=== PATIENT | male | born 2000 | race Caucasian/White ===

== ENCOUNTER 2020-01-03 09:21 | Emergency (ER) | payer MEDICAID ==
--- NOTE | 2020-01-03 15:03 | ED Physician Documentation ---
PD HPI ABD PAIN - Stated complaint Stated Complaint: CONSTIPATED - Chief complaint Chief Complaint: General - History obtained from History obtained from: Patient - History of Present Illness Timing - onset: Yesterday Timing - duration: Hours Timing - details: Gradual onset, Still present Quality: Sharp, Pain Location: Other (rectum) Radiation: Lower back Improved by: Laying still Worsened by: Moving, Breathing, Position, Palpation Associated symptoms: Constipation. No: Fever, Nausea, Vomiting Similar symptoms before: Has not had sx before Recently seen: Not recently seen - Additional information Additional information: 19-year-old male is acutely constipated. He states that he ate tuna some lin and he believes he has an impaction. He is not able to get stool to come out and and is he is in a lot of pain. He has not had this happen previously. Review of Systems Constitutional: denies: Fever, Chills Ears: denies: Ear pain Nose: denies: Congestion Throat: denies: Sore throat Respiratory: denies: Cough GI: reports: Abdominal Pain, Constipation. denies: Vomiting : denies: Dysuria, Frequency PD PAST MEDICAL HISTORY - Present Medications Home Medications: Ambulatory Orders Medication Instructions Recorded Confirmed No Known Home Medications 01/03/20 01/03/20 - Allergies Allergies/Adverse Reactions: Allergies Allergy/AdvReac Type Severity Reaction Status Date / Time No Known Drug Allergies Allergy Verified 01/03/20 09:30 PD ED PE NORMAL - Vitals Vital signs reviewed: Yes - General General: Alert and oriented X 3, Well developed/nourished, Other (Patient is moaning in pain standing in the room and moves very slowly.) - HEENT HEENT: Atraumatic, PERRL, EOMI - Neck Neck: Supple, no meningeal sign - Respiratory Respiratory: No respiratory distress - Rectal Rectal: Other (There is stool with sunflower seeds as an impaction in the rectum. This is manually disimpacted with relief of pain. Following that a Fleet enema is placed. The patient has significant improvement.) - Derm Derm: Normal color, Warm and dry, No rash - Extremities Extremities: No deformity, No edema - Neuro Neuro: No motor deficit, No sensory deficit Eye Opening: Spontaneous Motor: Obeys Commands Verbal: Oriented GCS Score: 15 - Psych Psych: Normal mood, Normal affect Results - Vitals Vitals: Vital Signs - 24 hr 01/03/20 09:31 Temperature 36.5 C Heart Rate 74 Respiratory 15 Rate Blood Pressure 155/89 H O2 Saturation 98 Oxygen O2 Source Room air PD MEDICAL DECISION MAKING - ED course Complexity details: considered differential, d/w patient ED course: 19-year-old male with a sunflower seed impaction in his rectum has relief of his pain with removal of the impaction. Departure - Departure Disposition: 01 Home, Self Care Clinical Impression: Constipation Qualifiers: Constipation type: other constipation type Qualified Code(s): K59.09 - Other constipation Condition: Stable Instructions: ED Constipation Follow-Up: Your, doctor [Other]
[2020-01-03 17:35] VITALS: BP 138/88
== END 2020-01-03 15:41 | disposition home or self-care (01) ==
LOC: ED 09:21
DX: K59.00 Constipation, unspecified (principal)
CPT/HCPCS: 99281; 99284

== ENCOUNTER 2020-09-12 16:44 | Outpatient (CLI) | payer MEDICAID | END 2020-09-12 16:45 | disposition home or self-care (01) | LOC: COV 16:44 | PROVIDERS: ATTEND Family Medicine | DX: Z20.822 Contact with and (suspected) exposure to COVID-19 (principal) ==